=== PATIENT | female | born 1960 | race Caucasian/White ===

== ENCOUNTER → 2018-01-04 | Outpatient (CLI) | payer OTHER ==
[~2018-01-04] MED LIST: ACET-1311 PO; ASCA500 PO; COEN1CAP40 PO; Calcium PO; ERYT250T PO; FEXO1TAB46 PO; HYDR1TAB96 PO; IBUP-1449 PO; LUTE15CA PO; MULT-506 PO; OMEG10002 PO
--- NOTE | 2018-01-04 16:00 | DIAGNOSTIC IMAGING REPORT ---
Brain MRI WITHOUT CONTRAST HISTORY: VERTIGO OF CENTRAL ORIGIN, UNSPECIFIC EAR TECHNIQUE: Multiplanar multisequence MRI of the brain was performed without the use of contrast. COMPARISON STUDY: Head CT 10/09/2015. FINDINGS: There is no mass, hematoma, midline shift, or acute infarct. The paranasal sinuses are clear. The mastoid air cells are clear. The ventricles and sulci demonstrate mild age-related involutional changes. Scattered foci of T2 hyperintensity seen within the periventricular and subcortical white matter are nonspecific but suggestive of mild microvascular ischemic changes. The major vascular flow voids at the skull base are well-maintained. IMPRESSION: No acute intracranial abnormality. A few scattered punctate foci of T2 hyperintensity seen within the periventricular and subcortical white matter are nonspecific but favor mild microvascular ischemic change. Electronically signed by: Naresh Iraheta M.D. 01/04/2018 3:59 PM Dictated Date/Time: 01/04/2018 3:49 PM
== END | disposition home or self-care (01) ==
LOC: C.MRIBC 14:51
PROVIDERS: ATTEND Family Medicine
DX: H81.49 Vertigo of central origin, unspecified ear (principal)